=== PATIENT | female | born 1935 | race American Indian/Alaskan Native ===

== ENCOUNTER 2017-02-05 14:48 | Emergency (ER) | payer MEDICARE, MEDICAID ==
[2017-02-05 14:48] VITALS: BMI 30.2
[2017-02-05 15:14] VITALS: PULSE 78; RESP 18
[2017-02-05 18:10] LABS: ALB/GLOB RATIO 1.3 (1.0-2.1); BILIRUBIN,TOTAL 0.6 mg/dL (0.2-1.3); TOTAL PROTEIN 8.3 g/dL (6.3-8.3)
[2017-02-05 18:11] LABS: CALCIUM 10.1 mg/dl (8.6-10.4)
[2017-02-05 18:15] LABS: BASO # 0.1 K/uL (0.0-0.2); BASO % 0.7 % (0.0-2.0); EOS # 0.3 K/uL (0.0-0.7); EOS % 3.6 % (0.0-4.0); HEMATOCRIT 39.3 % (34.0-47.0); LYMPH # 3.8 K/uL (1.0-4.3); LYMPH % 41.8 % (20.0-40.0); MEAN CELL VOLUME 95.7 fL (81.0-99.0); MEAN CORPUSCULAR HEMOGLOBIN 31.5 pg (27.0-31.0); MEAN CORPUSCULAR HGB CONC 32.9 g/dL (33.0-37.0); MEAN PLATELET VOLUME 8.7 fL (7.2-11.7); MONO # 0.7 K/uL (0.0-0.8); MONO % 7.4 % (0.0-10.0); NRBC % 0.1 % (0.0-2.0); RED CELL DISTRIBUTION WIDTH 13.2 % (11.5-14.5)
--- NOTE | 2017-02-05 18:30 | C.PDOC ---
History Of Present Illness The patient, a 81 y/o female, presents the ED accompanied by family member for evaluation of inability to swallow since this morning. Patient states she has been taking Risperidone and has been experiencing difficulty swallowing secondary to use. Patient denies fever, chills and has no other complaints at this time. Time Seen by Provider: 02/05/17 17:05 Chief Complaint (Nursing): Medical Clearance History Per: Patient, Family History/Exam Limitations: no limitations Onset/Duration Of Symptoms: Hrs Current Symptoms Are (Timing): Still Present Additional History Per: Patient, Family Past Medical History Reviewed: Historical Data, Nursing Documentation, Vital Signs Vital Signs: Last Vital Signs Temp 99.7 F H 02/05/17 15:13 Pulse 78 02/05/17 15:13 Resp 18 02/05/17 15:13 BP 136/77 02/05/17 15:13 Pulse Ox 100 02/05/17 18:37 - Medical History PMH: Anemia, Anxiety, Arthritis, COPD, Depression, Fractures (TIBIA FIBULA IN 2007), HTN, Hypercholesterolemia, Hypothyroidism, Malignancy (breast CA), Parkinson's Disease, Chronic Kidney Disease, Schizophrenia Surgical History: Tonsillectomy - [facility] [employer] Procedures C.A.T. SCAN OF KIDNEY (08/05/14) LAPAROSCOPIC ROBOTIC ASSISTED PROCEDURE (12/28/14) LAPAROSCOPY (12/28/14) NEPHROURETERECTOMY (12/28/14) PERCUTAN NEEDLE BIOPSY OF BREAST (07/16/13) PERCUTAN NEEDLE BIOPSY OF KIDNEY (08/05/14) X-RAY NEC AND NOS (07/16/13) Family History: States: Unknown Family Hx - Social History Hx Alcohol Use: No Hx Substance Use: No - Immunization History Hx Tetanus Toxoid Vaccination: No Hx Influenza Vaccination: Yes Hx Pneumococcal Vaccination: Yes Review Of Systems Except As Marked, All Systems Reviewed And Found Negative. Constitutional: Negative for: Fever, Chills ENT: Positive for: Other (+difficulty with swallowing secondary to risperidone use ) Physical Exam - Physical Exam Appears: Non-toxic, No Acute Distress Skin: Normal Color, Warm, Dry Head: Atraumatic, Normacephalic Eye(s): bilateral: Normal Inspection Oral Mucosa: Moist Throat: Normal, No Erythema, No Exudate Neck: Normal ROM, Supple Chest: Symmetrical, No Deformity, No Tenderness Cardiovascular: Rhythm Regular, No Murmur Respiratory: Normal Breath Sounds, No Rales, No Rhonchi, No Wheezing Back: Normal Inspection, No Vertebral Tenderness, No Paraspinal Tenderness Extremity: Normal ROM, Capillary Refill (less than 2 seconds ) Neurological/Psych: Oriented x3, Normal Speech, Normal Cognition, Other (+ tardive dyskinesia) Gait: Steady ED Course And Treatment - Laboratory Results Result Diagrams: 02/05/17 17:54 02/05/17 17:54 O2 Sat by Pulse Oximetry: 100 (on RA) Pulse Ox Interpretation: Normal Progress Note: labs, EKG, and CXR ordered and reviewed. Patient is currently able to tolerating PO intake in the ED. - Scribe Statement The provider has reviewed the documentation as recorded by the Scribe (Fawn Weiss) All medical record entries made by the Scribe were at my direction and personally dictated by me. I have reviewed the chart and agree that the record accurately reflects my personal performance of the history, physical exam, medical decision making, and the department course for this patient. I have also personally directed, reviewed, and agree with the discharge instructions and disposition.
[2017-02-05 18:42] LABS: THYROID STIMULATING HORMONE 2.58 mIU/L (0.46-4.68)
--- NOTE | 2017-02-05 18:48 | C.PDOC ---
History Of Present Illness The patient, a 81 y/o female, presents the ED accompanied by family member for evaluation of inability to swallow since this morning. Patient states she has been taking Risperidone and has been experiencing difficulty swallowing secondary to use. Patient denies fever, chills and has no other complaints at this time. Time Seen by Provider: 02/05/17 17:05 Chief Complaint (Nursing): Medical Clearance History Per: Patient, Family History/Exam Limitations: no limitations Onset/Duration Of Symptoms: Hrs Current Symptoms Are (Timing): Still Present Additional History Per: Patient, Family Past Medical History Reviewed: Historical Data, Nursing Documentation, Vital Signs Vital Signs: Last Vital Signs Temp 99.7 F H 02/05/17 15:13 Pulse 78 02/05/17 15:13 Resp 18 02/05/17 15:13 BP 136/77 02/05/17 15:13 Pulse Ox 100 02/05/17 18:48 - Medical History PMH: Anemia, Anxiety, Arthritis, COPD, Depression, Fractures (TIBIA FIBULA IN 2007), HTN, Hypercholesterolemia, Hypothyroidism, Malignancy (breast CA), Parkinson's Disease, Chronic Kidney Disease, Schizophrenia Surgical History: Tonsillectomy - [facility] Procedures C.A.T. SCAN OF KIDNEY (08/05/14) LAPAROSCOPIC ROBOTIC ASSISTED PROCEDURE (12/28/14) LAPAROSCOPY (12/28/14) NEPHROURETERECTOMY (12/28/14) PERCUTAN NEEDLE BIOPSY OF BREAST (07/16/13) PERCUTAN NEEDLE BIOPSY OF KIDNEY (08/05/14) X-RAY NEC AND NOS (07/16/13) Family History: States: Unknown Family Hx - Social History Hx Alcohol Use: No Hx Substance Use: No - Immunization History Hx Tetanus Toxoid Vaccination: No Hx Influenza Vaccination: Yes Hx Pneumococcal Vaccination: Yes Review Of Systems Except As Marked, All Systems Reviewed And Found Negative. Constitutional: Negative for: Fever, Chills ENT: Positive for: Other (+difficulty swallowing ) Physical Exam - Physical Exam Appears: Non-toxic, No Acute Distress, Other (eating and drinking in ED, no difficulty swallowing) Skin: Normal Color, Warm, Dry Head: Atraumatic, Normacephalic Eye(s): bilateral: Normal Inspection Oral Mucosa: Moist Throat: Normal, No Erythema, No Exudate Neck: Supple Chest: Symmetrical, No Deformity, No Tenderness Cardiovascular: Rhythm Regular, No Murmur Respiratory: Normal Breath Sounds, No Rales, No Rhonchi, No Wheezing Extremity: Normal ROM, Capillary Refill (less than 2 seconds ) Neurological/Psych: Oriented x3, Normal Speech, Normal Cognition, Other (+ tardive dyskinesia) Gait: Steady ED Course And Treatment - Laboratory Results Result Diagrams: 02/05/17 17:54 02/05/17 17:54 O2 Sat by Pulse Oximetry: 100 (on RA) Pulse Ox Interpretation: Normal Progress Note: EKG, CXR, and labs ordered and reviewed. Case discussed with Dr. Cano who recommended to d/c patient home, with him f/u tomorrow. Disposition - Disposition Referrals: Joellen Cano MD [Staff Provider] - Disposition: HOME/ ROUTINE Disposition Time: 18:53 Condition: STABLE Additional Instructions: Follow up with tomorrow. Return to ED if feel worse. Instructions: Extrapyramidal Symptoms (ED), Chronic Dysphagia (GEN) - Clinical Impression Clinical Impression: Extrapyramidal movement disorder, Difficulty swallowing - PA / PERSONAL FITNESS TRAINER / Resident Statement MD/DO has reviewed & agrees with the documentation as recorded. - Scribe Statement The provider has reviewed the documentation as recorded by the Scribe (Fawn Weiss) All medical record entries made by the Scribe were at my direction and personally dictated by me. I have reviewed the chart and agree that the record accurately reflects my personal performance of the history, physical exam, medical decision making, and the department course for this patient. I have also personally directed, reviewed, and agree with the discharge instructions and disposition.
[2017-02-05 19:09] VITALS: BP 160/80; TEMP 98.4; O2SAT 98
--- NOTE | 2017-02-05 21:04 | RAD ---
PROCEDURE: CHEST RADIOGRAPH, 1 VIEW HISTORY: difficulty swallowing COMPARISON: None available. FINDINGS: LUNGS: Mild venous congestion. Upper lobe granulomatous changes. PLEURA: No pneumothorax or pleural fluid seen. CARDIOVASCULAR: Calcification at the aortic knob. Mild cardiomegaly. OSSEOUS STRUCTURES: Degenerative changes in the spine and shoulders. VISUALIZED UPPER ABDOMEN: Normal. OTHER FINDINGS: None. IMPRESSION: Mild venous congestion. Upper lobe granulomatous changes.
== END 2017-02-05 19:09 | disposition home or self-care (01) ==
LOC: C.ER 14:48
DX: G25.9 Extrapyramidal and movement disorder, unspecified (principal); R13.10 Dysphagia, unspecified

== ENCOUNTER 2017-11-27 14:37 | Inpatient (IN) | payer MEDICARE, MEDICAID ==
[2017-11-27 14:38] VITALS: BMI 30.2
[2017-11-27 16:02] VITALS: RESP 20
--- NOTE | 2017-11-27 16:06 | RAD ---
PROCEDURE: CHEST RADIOGRAPH, 1 VIEW HISTORY: Weakness COMPARISON: 02/05/2017. FINDINGS: LUNGS: The lungs are clear. PLEURA: No pneumothorax or pleural fluid seen. CARDIOVASCULAR: The heart is normal in size. Atherosclerotic aortic arch calcifications are present. OSSEOUS STRUCTURES: No significant abnormalities. VISUALIZED UPPER ABDOMEN: Normal. OTHER FINDINGS: None. IMPRESSION: No active pulmonary disease.
--- NOTE | 2017-11-27 16:53 | C.PDOC ---
History Of Present Illness 82 y/o female with history of Parkinson's, DM and HTN presents to ED for evaluation of weakness, decreased appetite and decrease in activity for over 1 week. As per sister who is at bedside, she states she thinks patient developing dementia, and was sent by Dr. Cano for admission as patient needs rehab. Sister states patient just stirs her food with little intake. She has been having more trouble with daily activities such as dressing herself and feeding herself. She has noticed weight loss and patient complains of feeling weak. Time Seen by Provider: 11/27/17 15:36 Chief Complaint (Nursing): Weakness/Neurological Deficit History Per: Patient History/Exam Limitations: no limitations Onset/Duration Of Symptoms: Days Current Symptoms Are (Timing): Still Present Past Medical History Reviewed: Historical Data, Nursing Documentation, Vital Signs Vital Signs: Last Vital Signs Temp 98.4 F 11/27/17 14:42 Pulse 69 11/27/17 16:02 Resp 20 11/27/17 16:02 BP 137/62 11/27/17 16:02 Pulse Ox 99 11/27/17 17:50 - Medical History PMH: Anemia, Anxiety, Arthritis, COPD, Depression, Fractures (TIBIA FIBULA IN 2007), HTN, Hypercholesterolemia, Hypothyroidism, Malignancy (breast CA), Parkinson's Disease, Chronic Kidney Disease, Schizophrenia Surgical History: Tonsillectomy - [facility] Procedures C.A.T. SCAN OF KIDNEY (08/05/14) LAPAROSCOPIC ROBOTIC ASSISTED PROCEDURE (12/28/14) LAPAROSCOPY (12/28/14) NEPHROURETERECTOMY (12/28/14) PERCUTAN NEEDLE BIOPSY OF BREAST (07/16/13) PERCUTAN NEEDLE BIOPSY OF KIDNEY (08/05/14) X-RAY NEC AND NOS (07/16/13) Family History: States: No Known Family Hx - Social History Hx Alcohol Use: No Hx Substance Use: No - Immunization History Hx Tetanus Toxoid Vaccination: No Hx Influenza Vaccination: Yes Hx Pneumococcal Vaccination: Yes Review Of Systems Review Of Systems: ROS cannot be obtained secondary to pt's inabilty to answer questions. (secondary to patient's clinical condition) Physical Exam - Physical Exam Appears: Non-toxic, No Acute Distress Skin: Warm, Dry, No Diaphoretic, No Pale, No Rash Head: Atraumatic, Normacephalic Eye(s): bilateral: Normal Inspection, EOMI Oral Mucosa: Dry Lips: Other (dry) Neck: Normal ROM, Supple Chest: Other (Masectomy bilaterally) Cardiovascular: Rhythm Regular Respiratory: No Rales, No Rhonchi, No Wheezing Gastrointestinal/Abdominal: Soft, No Tenderness, No Guarding, No Rebound Extremity: Bilateral: Atraumatic, Normal ROM Neurological/Psych: Oriented x3, Normal Speech Gait: Unable To Assess ED Course And Treatment - Laboratory Results Result Diagrams: 11/27/17 17:07 11/27/17 17:07 Lab Interpretation: No Acute Changes O2 Sat by Pulse Oximetry: 99 (RA) Pulse Ox Interpretation: Normal - CT Scan/US Head Other Rad Studies (CT/US): Read By Radiologist, Radiology Report Reviewed CT/US Interpretation: Accession No. : [id number]. Patient Name / ID : KEITH HIGH / [id number]. Exam Date : 11/27/2017 17:14:50 ( Approved ). Study Comment : Sex / Age : F / 82Y. Creator : Soco Cruz. Dictator : Devorah Zuniga MD. Dive Master : Route Supervisor : Devorah Zuniga MD. Approver2 : Report Date : 11/27/2017 17:26:41. My Comment : . PROCEDURE: CT HEAD WITHOUT CONTRAST. HISTORY: AMS x 1 week, weakness. COMPARISON: Noncontrast head CT performed 09/13/15. TECHNIQUE: Axial computed tomography images were obtained through the head/brain without intravenous contrast. Radiation dose: Total exam DLP = 867.87 mGy-cm. This CT exam was performed using one or more of the following dose reduction techniques: Automated exposure control, adjustment of the mA and/or kV according to patient size, and/ or use of iterative reconstruction technique. FINDINGS: HEMORRHAGE: No intracranial hemorrhage. BRAIN: Diffuse atrophy with prominence of the ventricles and sulci noted. No mass effect or edema. Scattered periventricular and subcortical white matter hypodensities, which are nonspecific, but often seen with chronic microvascular ischemic disease. Please note that MRI with diffusion imaging is more sensitive in the detection of acute ischemic event. VENTRICLES: No hydrocephalus. CALVARIUM: Unremarkable. PARANASAL SINUSES: Unremarkable as visualized. No significant inflammatory changes. MASTOID AIR CELLS: Unremarkable as visualized. No inflammatory changes. OTHER FINDINGS: Partial opacification of the bilateral external auditory canals, likely cerumen. IMPRESSION: No acute intracranial pathology identified. Findings as above. Chest Xray Other Rad Studies (CT/US): Read By Radiologist, Radiology Report Reviewed CT/US Interpretation: Accession No. : [id number]. Patient Name / ID : KEITH HIGH / [id number]. Exam Date : 11/27/2017 15:57:36 ( Approved ). Study Comment : Sex / Age : F / 82Y. Creator : Yany Lawrence MD. Dictator : Yany Lawrence MD. Dive Master : Route Supervisor : Yany Lawrence MD. Approver2 : Report Date : 11/27/2017 16:05:06. My Comment : . PROCEDURE: CHEST RADIOGRAPH, 1 VIEW. HISTORY: Weakness. COMPARISON: 2016. FINDINGS: LUNGS: The lungs are clear. PLEURA: No pneumothorax or pleural fluid seen. CARDIOVASCULAR: The heart is normal in size. Atherosclerotic aortic arch calcifications are present. OSSEOUS STRUCTURES: No significant abnormalities. VISUALIZED UPPER ABDOMEN: Normal. OTHER FINDINGS: None. IMPRESSION: No active pulmonary disease. Medical Decision Making Medical Decision Making: Impression: Weakness Plan: Blood work, CT scan Progress: diagnostics reviewed CT shows no intracranial pathology Patient appears dry, despite labwork. She has been having more difficulty with ADL. Patient will need PT, OT and inpatient perinatal social worker [id number]: Spoke to Dr. Cano requested patient to be admitted under his service Disposition - Disposition Disposition: HOSPITALIZED Disposition Time: 17:57 Condition: STABLE - POA Present On Arrival: None - Clinical Impression Clinical Impression: Failure to thrive in adult, Impaired mobility and ADLs - PA / CIVIL MANAGER / Resident Statement MD/DO has reviewed & agrees with the documentation as recorded. - Scribe Statement The provider has reviewed the documentation as recorded by the Tip Benoit All medical record entries made by the Steffanieibgonzales were at my direction and personally dictated by me. I have reviewed the chart and agree that the record accurately reflects my personal performance of the history, physical exam, medical decision making, and the department course for this patient. I have also personally directed, reviewed, and agree with the discharge instructions and disposition. Decision To Admit - Pt Status Changed To: Hospital Disposition Of: Inpatient - Admit Certification Admit to Inpatient:: After my assessment, the patient will require hospitalization for at least two midnights. This is because of the severity of symptoms shown, intensity of services needed, and/or the medical risk in this patient being treated as an outpatient. - InPatient: Physician Admission Certification: I certify that this patient requires 2 or more midnights of care for the following reason:: Patient appears dry. She has been having more difficulty with ADL. Patient will need PT, OT and inpatient perinatal social worker - . Bed Request Type: Regular Admitting Physician: Joellen Cano Patient Diagnosis: Failure to thrive in adult, Impaired mobility and ADLs
[2017-11-27 17:16] LABS: BASO # 0.1 K/uL (0.0-0.2); BASO % 0.9 % (0.0-2.0); EOS # 0.2 K/uL (0.0-0.7); EOS % 2.1 % (0.0-4.0); HEMOGLOBIN 11.7 g/dL (11.0-16.0); LYMPH # 2.9 K/uL (1.0-4.3); LYMPH % 38.9 % (20.0-40.0); MEAN CORPUSCULAR HEMOGLOBIN 32.2 pg (27.0-31.0); MEAN CORPUSCULAR HGB CONC 33.2 g/dL (33.0-37.0); MEAN PLATELET VOLUME 8.4 fL (7.2-11.7); MONO # 0.6 K/uL (0.0-0.8); NEUT # 3.7 K/uL (1.8-7.0); NEUT % 50.1 % (50.0-75.0); NRBC % 0.1 % (0.0-2.0); RBC 3.63 Mil/uL (3.80-5.20); RED CELL DISTRIBUTION WIDTH 12.8 % (11.5-14.5); WHITE BLOOD COUNT 7.4 K/uL (4.8-10.8)
[2017-11-27 17:39] LABS: ALBUMIN 3.9 g/dL (3.5-5.0); ALT/SGPT 21 U/L (9-52); AST/SGOT 34 U/L (14-36); BLOOD UREA NITROGEN 16 mg/dL (7-17); CALCIUM 9.4 mg/dl (8.6-10.4); GFR AFRICAN-AMERICAN > 60; GFR NON-AFRICAN AMERICAN > 60
--- NOTE | 2017-11-27 17:40 | CT ---
PROCEDURE: CT HEAD WITHOUT CONTRAST. HISTORY: AMS x 1 week, weakness COMPARISON: Noncontrast head CT performed 09/13/15 TECHNIQUE: Axial computed tomography images were obtained through the head/brain without intravenous contrast. Radiation dose: Total exam DLP = 867.87 mGy-cm. This CT exam was performed using one or more of the following dose reduction techniques: Automated exposure control, adjustment of the mA and/or kV according to patient size, and/or use of iterative reconstruction technique. FINDINGS: HEMORRHAGE: No intracranial hemorrhage. BRAIN: Diffuse atrophy with prominence of the ventricles and sulci noted. No mass effect or edema. Scattered periventricular and subcortical white matter hypodensities, which are nonspecific, but often seen with chronic microvascular ischemic disease. Please note that MRI with diffusion imaging is more sensitive in the detection of acute ischemic event. VENTRICLES: No hydrocephalus. CALVARIUM: Unremarkable. PARANASAL SINUSES: Unremarkable as visualized. No significant inflammatory changes. MASTOID AIR CELLS: Unremarkable as visualized. No inflammatory changes. OTHER FINDINGS: Partial opacification of the bilateral external auditory canals, likely cerumen. IMPRESSION: No acute intracranial pathology identified. Findings as above.
[2017-11-27 17:45] LABS: B-TYPE NATRIURETIC PEPTIDE 77.9 pg/mL (0-900); CK-MB 2.33 ng/mL (0.0-3.38)
[2017-11-27 19:34] LABS: SQUAMOUS EPITHIAL 1 /hpf (0-5); URINE AMORPHOUS SEDIMENT RARE /ul (<OCC); URINE BACTERIA OCC (<OCC); URINE BILIRUBIN NEGATIVE (NEGATIVE); URINE BLOOD NEGATIVE (NEGATIVE); URINE CLARITY Hazy (Clear); URINE COLOR Yellow (YELLOW); URINE GLUCOSE (UA) NORMAL (Normal); URINE LEUKOCYTE ESTERASE TRACE Leu/uL (Negative); URINE NITRATE NEGATIVE (NEGATIVE); URINE PROTEIN NEGATIVE (NEGATIVE); URINE UROBILINOGEN NORMAL mg/dL (0.2-1.0)
[2017-11-27] MEDS: Sodium Chloride 0.45% 1,000 ML IV SCH (21:35)
[2017-11-28] MEDS: Levothyroxine 75 MCG TAB PO SCH (05:46)
--- NOTE | 2017-11-28 06:51 | CP.PCM.CON ---
History of Present Illness - History of Present Illness History of Present Illness: consult dictated MID AND APPENDICULAR DYSFUNCTION TARDY DYSKINESIA NO PARKINSONS DISEASE ??PARANEOPLASTIC / HEREDITARY DEGEN DISEASE MRI/BLOOD DEMENTIAS WORK UP PT Past Patient History - Infectious Disease Hx of Infectious Diseases: None - Past Medical History & Family History Past Medical History?: Yes - Past Social History Smoking Status: Never Smoked - CARDIAC Hx Hypercholesterolemia: Yes Hx Hypertension: Yes - PULMONARY Hx Chronic Obstructive Pulmonary Disease (COPD): Yes - NEUROLOGICAL Hx Parkinson's Disease: Yes - HEENT Hx HEENT Problems: No Other/Comment: blurry vision - side effect of medication as per family - RENAL Hx Chronic Kidney Disease: Yes - ENDOCRINE/METABOLIC Hx Hypothyroidism: Yes - HEMATOLOGICAL/ONCOLOGICAL Hx Anemia: Yes - INTEGUMENTARY Hx Dermatological Problems: Yes (rash left breast) - MUSCULOSKELETAL/RHEUMATOLOGICAL Hx Falls: Yes - GASTROINTESTINAL Hx Gastrointestinal Disorders: Yes (constipation) Hx Constipation: Yes - GENITOURINARY/GYNECOLOGICAL Hx Genitourinary Disorders: Yes Other/Comment: UTERINE FIBROID - PSYCHIATRIC Hx Anxiety: Yes Hx Depression: Yes Hx Substance Use: No - SURGICAL HISTORY Hx Surgeries: Yes Hx Hysterectomy: Yes Hx Mastectomy: Yes (left mastectomy) Hx Tonsillectomy: Yes Other/Comment: right nephrectomy - ANESTHESIA Hx Anesthesia: Yes Hx Anesthesia Reactions: No Hx Malignant Hyperthermia: No Has any member of the family had a problem w/ anesthesia?: No Meds Allergies/Adverse Reactions: Allergies Allergy/AdvReac Type Severity Reaction Status Date / Time Latex, Natural Rubber Allergy Intermediate RASH Verified 11/27/17 14:42 bacitracin Allergy Mild RASH Verified 11/27/17 14:42 [From Neosporin ([id number])] bacitracin zinc Allergy Mild RASH Verified 11/27/17 14:42 [From Neosporin ([id number])] ibuprofen [From Motrin] Allergy Mild RASH Verified 11/27/17 14:42 neomycin sulfate Allergy Mild RASH Verified 11/27/17 14:42 [From Neosporin ([id number])] polymyxin B Allergy Mild RASH Verified 11/27/17 14:42 [From Neosporin ([id number])] - Medications Medications: Current Medications Amlodipine Besylate (Norvasc) 5 mg PO DAILY [facility] Benztropine Mesylate (Cogentin) 2 mg PO HS [facility]BI Last Admin: 11/27/17 22:34 Dose: 2 mg Sodium Chloride (Sodium Chloride 0.45%) 1,000 mls @ 80 mls/hr IV .[id number] [facility] Last Admin: 11/27/17 21:35 Dose: 80 mls/hr Insulin Aspart (Novolog) 0 unit SC ACBD [facility] PRN Reason: Protocol Levothyroxine Sodium (Synthroid) 75 mcg PO DAILY@0630 [facility] Last Admin: 11/28/17 05:46 Dose: 75 mcg Lorazepam (Ativan) 0.5 mg PO HS [facility] Last Admin: 11/27/17 22:06 Dose: 0.5 mg Lorazepam (Ativan) 0.5 mg PO DAILY PRN PRN Reason: Anxiety Multivitamins/Minerals (Therapeutic-M Tab) 1 tab PO 0800 [facility] Pneumococcal Polyvalent Vaccine (Pneumovax 23 Vaccine) 0.5 ml IM .ONCE ONE Stop: 11/29/17 10:01 Rosuvastatin Calcium (Crestor) 10 mg PO [facility] Last Admin: 11/27/17 22:05 Dose: 10 mg Results - Vital Signs Recent Vital Signs: Last Vital Signs Temp 98.2 F 11/28/17 01:00 Pulse 99 H 11/28/17 01:00 Resp 20 11/28/17 01:00 BP 159/72 H 11/28/17 01:00 Pulse Ox 97 11/28/17 01:00 - Labs Result Diagrams: 11/27/17 17:07 11/27/17 17:07 Labs: Laboratory Results - last 24 hr 11/27/17 11/27/17 11/27/17 17:04 17:07 17:07 WBC 7.4 RBC 3.63 L Hgb 11.7 Hct 35.2 MCV 97.0 MCH 32.2 H MCHC 33.2 RDW 12.8 Plt Count 243 MPV 8.4 Neut % (Auto) 50.1 Lymph % (Auto) 38.9 [place] % (Auto) 8.0 Eos % (Auto) 2.1 Baso % (Auto) 0.9 Neut # (Auto) 3.7 Lymph # (Auto) 2.9 [place] # (Auto) 0.6 Eos # (Auto) 0.2 Baso # (Auto) 0.1 Sodium 139 Potassium 3.9 Chloride 101 Carbon Dioxide 29 Anion Gap 14 BUN 16 Creatinine 0.9 Est GFR ( Amer) > 60 Est GFR (Non-Af Amer) > 60 POC Glucose (mg/dL) Random Glucose 92 Calcium 9.4 Total Bilirubin 0.7 AST 34 ALT 21 Alkaline Phosphatase 68 CK-MB (Mass) 2.33 NT-Pro-B Natriuret Pep 77.9 Total Protein 7.6 Albumin 3.9 Globulin 3.7 Albumin/Globulin Ratio 1.0 Free T4 1.26 TSH 3rd Generation 1.22 Urine Color Urine Clarity Urine pH Ur Specific [place] Urine Protein Urine Glucose (UA) Urine Ketones Urine Blood Urine Nitrate Urine Bilirubin Urine Urobilinogen Ur Leukocyte Esterase Urine WBC (Auto) Urine RBC (Auto) Ur Squamous Epith Cells Amorphous Sediment Urine Bacteria 11/27/17 11/27/17 11/28/17 19:20 21:08 02:38 WBC RBC Hgb Hct MCV MCH MCHC RDW Plt Count MPV Neut % (Auto) Lymph % (Auto) [place] % (Auto) Eos % (Auto) Baso % (Auto) Neut # (Auto) Lymph # (Auto) [place] # (Auto) Eos # (Auto) Baso # (Auto) Sodium Potassium Chloride Carbon Dioxide Anion Gap BUN Creatinine Est GFR ( Amer) Est GFR (Non-Af Amer) POC Glucose (mg/dL) 99 86 Random Glucose Calcium Total Bilirubin AST ALT Alkaline Phosphatase CK-MB (Mass) NT-Pro-B Natriuret Pep Total Protein Albumin Globulin Albumin/Globulin Ratio Free T4 TSH 3rd Generation Urine Color Yellow Urine Clarity Hazy Urine pH 6.0 Ur Specific [place] 1.020 Urine Protein Negative Urine Glucose (UA) Normal Urine Ketones 1+ H Urine Blood Negative Urine Nitrate Negative Urine Bilirubin Negative Urine Urobilinogen Normal Ur Leukocyte Esterase Trace Urine WBC (Auto) 3 Urine RBC (Auto) 2 Ur Squamous Epith Cells 1 Amorphous Sediment Rare H Urine Bacteria Occ H
[2017-11-28 09:12] LABS: FOLATE > 20.0 ng/mL
[2017-11-28] MEDS: (Novolog) Insulin Aspart, Recombinant 100 u/ml 10 ml vial SC SCH ×2 (10:11→16:55)
[2017-11-28] MEDS: Sodium Chloride 0.45% 1,000 ML IV SCH ×2 (10:12→22:15)
[2017-11-28] MEDS: Multivitamin With Minerals Tab PO SCH (10:24)
[2017-11-28] MEDS: Enoxaparin 30 mg Syringe SC SCH (10:25)
--- NOTE | 2017-11-28 11:41 | CARD ---
APPROVED REPORT EKG Measurement Heart [id number] W[place] [id number] <Conclusion> Sinus rhythm with premature supraventricular complexes Nonspecific ST and T wave abnormality Abnormal ECG
--- NOTE | 2017-11-28 12:16 | CON ---
DATE: ATTENDING PHYSICIAN: Joellen Cano MD. LOCATION: Room# 365, [facility]. REASON FOR CONSULTATION: Poor intake, generalized weakness and history of Parkinson disease. HISTORY OF PRESENTING ILLNESS: Mrs. Willa Sandoval is an 82-year-old right-handed female who is known to me from her previous hospitalization, brought to the [facility] by her family members with the advice of the primary care physician due to her inability to eat too well and generalized weakness. From neurologic point of view I was called in to evaluate her for abnormal movement, possible Parkinson's disease. She was admitted in the past for the similar complaints. 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 PAST MEDICAL HISTORY: Anemia, anxiety, arthritis, COPD, depression, hypertension, dyslipidemia, hypothyroidism, breast cancer, Parkinson disease, chronic renal disease and schizophrenia. PERSONAL HISTORY: Denies smoking or alcohol use. ALLERGIES: RUBBER MATERIALS, BACITRACIN AND IBUPROFEN. REVIEW OF SYSTEMS: A 12-point system being reviewed from neuro, the patient has movement disorder. MEDICATIONS: Lorazepam, Ativan, Cogentin, Crestor, Norvasc, NovoLog, Synthroid. PHYSICAL EXAMINATION: VITAL SIGNS: Blood pressure 159/72, mean artery pressure of 101, respiratory rate 16, temperature afebrile. NECK: Supple. No carotid bruits. HEART: Sounds regular. CHEST: Fair air entry. EXTREMITIES: Distal muscle groups atrophy noted. NEUROLOGIC: The patient giving social smile. She seems to remember my name. Communicable, follows one-step command. No right and left confusion. Cranial nerve examination, respond to visual threat. Pupils reactive to light. Extraocular movement, rolling conjugate gaze noted. No vision or sensory deficit. No facial asymmetry. Hearing is normal. Tongue is midline. Good gag. Motor examination, outstretched hand with eyes closed, sensory tremor noted. Mild dysmetria on finger-nose testing also noted. No cogwheel rigidity. No resting tremor. Deep tendon reflexes are absent. Plantars are equivocal response on both sides. Sensory examination respond to pain symmetrically on both sides. Gait is deferred at this time. WORKUP: CT of the head does not show any acute pathology, generalized atrophy with periventricular ischemic changes noted. EKG normal sinus rhythm. Blood workup, WBC 7.4, hemoglobin 11.7, hematocrit 35.2, platelet 243. Sodium 139, potassium 3.9, chloride 101, bicarbonate 29, BUN 16, creatinine 0.9, GFR more than 60, glucose 86, calcium 9.4. Liver functions are normal. Urinalysis is 1+ketones and rare amorphous sediments. CONCLUSION: Mrs. Willa Sandoval been presenting with; 1. 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 Considering her age and history of breast cancer, paraneoplastic syndrome should be ruled out. 2. The patient also suffering from bilateral distal symmetric sensorimotor neuropathy. 3. 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 RECOMMENDATIONS: 1. MRI of the brain to rule out any structural cause for her mid and appendicular cerebellar dysfunction. 2. Blood workup to rule out paraneoplastic syndrome and hepatolenticular degeneration. 3. The patient should be out of the bed, DVT prophylaxis and physical therapy should be instituted with fall precaution. 4. The patient does not show any evidence of Parkinson disease. The patient will be followed closely with you. Richard Duckworth MD
--- NOTE | 2017-11-28 22:51 | PN ---
DATE: 11/28/2017. SUBJECTIVE: The patient is seen today, 11/28/2017 and son is at bedside. PHYSICAL EXAMINATION: VITAL SIGNS: Blood pressure is 163/69, temperature 98.3, respiratory rate 20 and pulse 62. HEENT: Pupils equal, reactive to light. Normal-appearing mucosa of the conjunctivae, oropharynx and nasal membrane mucosa. NECK: Supple. No JVD. No carotid bruit. No lymph node. No thyromegaly. CHEST AND LUNGS: Bilateral symmetrical expansion. Good air exchange. No rales, no rhonchi. CARDIOVASCULAR SYSTEM: PMI not localized. S1, S2. No additional sounds. ABDOMEN: Normoactive bowel sounds. No tenderness. No organomegaly. No masses. EXTREMITIES: No cyanosis, no clubbing, no edema. MEAT HANGER: Alert, awake, oriented x1 and moves all extremities equally. ASSESSMENT: Parkinson's syndrome, dysfunctional gait and tendency to fall, hypertension, hypothyroidism. PLAN: Continue current medications and followup with Pulmonary, followup with Neurology as well as with Psychiatry recommendations. Continue IV fluid for hydration. Joellen Cano MD
--- NOTE | 2017-11-29 00:45 | CON ---
DATE: CHIEF COMPLAINT AND REASON FOR CONSULTATION: The patient is referred by Dr. Cano for evaluation, comanagement. The patient has history of schizophrenia, also history of dementia. The patient is well known to me, had been treated during the past at the office as well as in hospital and [facility]. HISTORY OF PRESENT ILLNESS: This is a case of 82-year-old female with history of schizophrenia for many many years as well as history of diabetes, hypertension, history of secondary Parkinsonism, patient developed Parkinson from chronic use of neuroleptic in the past, but has been off neuroleptic. The patient was brought in by the sister for increasing weakness, poor appetite, and debility for one week. The patient has history of Parkinson. Her sister, Daisy, is the one who is taking care of her, and the patient was advised by her doctor that the patient need rehab. The patient has a history of dementia. She has tried medication for dementia in the past but unable to tolerate due to side effects. She also has been taking off psych medications because of her Parkinson. The patient attends day program with [facility] 5 days a week and has been for a while manageable, but later has been declining medically, and the sister reports that the patient has not been eating well and also has been feeling weak. Review of her labs showed the patient's B12 was low, was only 233 which contributed to her weakness. The patient when seen today, was noted be drowsy, and she was given Ativan p.r.n. The patient is only taking Ativan at home 0.5 mg at bedtime and also p.r.n. as well as Cogentin 2 mg at bedtime for her Parkinson disease, however, Cogentin can worsen her dementia. The patient has been referred to be seen for Parkinson by Dr. Duckworth. PAST PSYCHIATRIC HISTORY: As stated, long history of schizophrenia as well as history of secondary Parkinsonism and has been off neuroleptic, history of psych admission in the past. No suicidal history. MEDICAL HISTORY: As stated, history of hypertension, history of anemia, history of schizophrenia, Parkinson disease, skin problems, history of hypothyroidism, history of hyperglyceridemia, history of arthritis, and history of breast CA. DRUG AND ALCOHOL HISTORY: Denies any. ALLERGIES: THE PATIENT HAS MULTIPLE ALLERGIES. ALLERGIC TO LATEX, BACITRACIN, BUSPIRONE. PSYCHOSOCIAL HISTORY: The patient is disabled. She lives with her sister, Daisy, who is her primary caregiver. MEDICATIONS: Include Ativan 0.5 mg at bedtime and 0.5 mg daily p.r.n.; Cogentin 2 mg at bedtime; Crestor; Norvasc; NovoLog; Synthroid. The patient is on multivitamins. The patient used to take Aricept in the past and history of drooling from it, so it was stopped. REVIEW OF LABS: WBC is 7.4, H and H 11.7 and 35.2. Folate is greater than 20 but her B12 level is low at 233. Free T4 is 1.26. UA is +1 for ketones and some occasional bacteria. REVIEW OF SYSTEMS: GENERAL: The patient is drowsy in her room, could hardly converse but nods when asked. SKIN: No diaphoresis. HEENT: No headache or dizziness. NECK: Supple. RESPIRATORY: No dyspnea. CARDIOVASCULAR: No chest pain. GASTROINTESTINAL: The patient is refusing to eat. As noted, the patient has poor appetite. EXTREMITIES: The patient is moving extremities with no step off but the patient has not been walking well. NEUROLOGIC: Alert with periods of confusion. GENITOURINARY: No complaints of dysuria. PHYSICAL EXAMINATION: VITAL SIGNS: Temperature 98, pulse 62, blood pressure 163/69, respirations 20, oxygen sat is 96%. The patient had a CAT scan of the head done that showed no acute intracranial abnormality. However, the CAT scan did show that the patient has diffuse atrophy with prominence of the ventricle and sulci noted. MENTAL STATUS EXAMINATION: Elderly female who looks stated age, wearing a turban, in her room, oriented to place and person. Speech is low in tone. Affect is restricted. Mood is dysphoric. Thought process is confused at times. Thought content, no overt hallucinations. No suicidal ideation. Attention and memory seems to be limited. Insight and judgement limited. Impulse control is fair at this time. IMPRESSION: History of chronic schizophrenia, with secondary Parkinsonism as well as history of dementia with mood changes as well as debility, failure to thrive, and B12 deficiency. The patient also has UTI. PLAN AND RECOMMENDATIONS: The patient seen, meds reviewed. The patient referred and had been evaluated by Dr. Duckworth. Psychwise, we will keep in minimum psych medication. She continued the Ativan 0.5 mg at bedtime and Ativan 0.5 daily. The patient's Parkinson has been evaluated by Dr. Duckworth. She is not exhibiting any psychotic symptoms, however, she will be given meds, dopamine agonists for her Parkinson. We will monitor if patient given Sinemet or any kind of medication for Parkinson that would raise the dopamine might exacerbate her primary psych problems and may cause hallucinations, paranoia, or anxiety. I did suggest not to put patient on medicines for dementia as we tried it in the past and the patient cannot tolerate it. When she was on Aricept, the patient was drooling and spitting a lot and it did not work, so the patient may benefit just with a low dose Ativan and also she might need to go for subacute rehab for reconditioning. The patient's caregiver, Daisy, has been taking care for her for years, but patient seems to decline medically and may need to go for subacute rehab. She was in the rehab in the past for reconditioning and did well. Eleuterio Corral MD DANO
[2017-11-29] MEDS: Levothyroxine 75 MCG TAB PO SCH (06:00)
[2017-11-29] MEDS: Multivitamin With Minerals Tab PO SCH (07:48)
[2017-11-29] MEDS: (Novolog) Insulin Aspart, Recombinant 100 u/ml 10 ml vial SC SCH ×2 (07:54→18:05)
[2017-11-29 08:23] LABS: CERULOPLASMIN 25 mg/dL (18-53)
--- NOTE | 2017-11-29 09:38 | PN ---
DATE: 11/29/2017. TIME OF EVALUATION: 06:15 a.m. NEUROLOGICAL PROBLEM: Parkinson syndrome. PHYSICAL EXAMINATION: VITAL SIGNS: Blood pressure 157/73, mean artery pressure of 101, respiratory rate 18, temperature 97.4. NEUROLOGICAL: The patient is more awake, alert, communicable, moves all 4 extremities as per the command. Mild right and left confusion. Some orolingual dyskinesia noted. Her examination unchanged to compare with my previous examination. RECOMMENDATIONS: 1. The patient does not have Parkinson disease. 2. The patient had workup showed significant low level of vitamin B12, which has been supplemented IM since yesterday. The patient's scheduled MRI of the brain is pending including blood workup is also pending. The patient will be followed closely with you. Richard Duckowrth MD
--- NOTE | 2017-11-29 09:45 | HP ---
The patient was seen on 11/27/2017 in emergency room. HISTORY OF PRESENT ILLNESS: She is an 82 years old female with history of multiple medical problems who was brought by family to emergency room for inability to eat, generalized weakness, and unsteadiness. The patient also was noticed to have abnormal movement of mouth smacking and possible tremors. The patient denied to have any symptoms and history taken mostly from the sister who was at the bedside. Other review of system is negative. ALLERGIES: NO KNOWN ALLERGIES. PAST MEDICAL HISTORY: Cancer of breast, status post right mastectomy, hypertension, type 2 diabetes mellitus, hypothyroidism. MEDICATIONS: As per MAR. SOCIAL HISTORY: No history of smoking, EtOH, or substance abuse. FAMILY HISTORY: Not contributory. PHYSICAL EXAMINATION: GENERAL: The patient was in bed, comfortable, not in any cardiopulmonary distress. VITAL SIGNS: Blood pressure 140/78, temperature 98.2, respiratory rate 18, pulse of 72. HEENT: Pupils equal and reactive to light. Normal-appearing mucosa of the conjunctivae, oropharynx, and nasal membrane mucosa. NECK: Supple. No JVD. No carotid bruit. No lymph node. No thyromegaly. CHEST/LUNGS: Bilateral symmetrical expansion. Good air exchange. No rales, no rhonchi. CARDIOVASCULAR SYSTEM: PMI not localized. S1, S2. No additional sounds. ABDOMEN: Normoactive bowel sounds. No tenderness. No organomegaly. No masses. EXTREMITIES: No cyanosis, no clubbing, no edema. CLINICAL RESEARCH PHYSICIAN: Alert, awake, oriented x1; moves all extremities equally. ASSESSMENT: Type 2 diabetes mellitus, hypertension, possible Parkinson's syndrome, hypothyroidism. PLAN: Physical therapy, and follow Neurology and Psychiatry consults and recommendations. Joellen Cano MD
[2017-11-29] MEDS ORDERED: Pneumococcal 23-Valent Vaccine IM ONE (10:00)
[2017-11-29] MEDS: Enoxaparin 30 mg Syringe SC SCH (10:13)
[2017-11-29] MEDS: Sodium Chloride 0.45% 1,000 ML IV SCH ×2 (11:33→23:15)
--- NOTE | 2017-11-29 12:31 | MRI ---
PROCEDURE: MRI BRAIN WITHOUT CONTRAST HISTORY: Dementia and failure to thrive, spinous cerebellar degeneration COMPARISON: Noncontrast head CT from 11/27/2017 there is. TECHNIQUE: Multiplanar, multisequence MR images of the brain were obtained without intravenous contrast enhancement. FINDINGS: HEMORRHAGE: None DWI: No evidence of an acute or early subacute infarction. BRAIN PARENCHYMA: There are moderate chronic microangiopathic changes. There is no mass, mass effect or abnormal extra-axial fluid collection. The midline sagittal structures are normal. VENTRICLES: There is moderate age-related global parenchymal volume loss and proportionate enlargement of the ventricles and cortical sulci. There is a cavum septum pellucidum. CRANIUM: There is normal bone marrow signal pattern. ORBITS: Grossly unremarkable. PARANASAL SINUSES/MASTOIDS: There is a retention cyst/ polyp in the right maxillary sinus, the remaining included paranasal sinuses and mastoid air cells are predominantly clear. VASCULAR SYSTEM: There are normal signal voids in the larger intracranial arteries. OTHER FINDINGS: None. IMPRESSION: 1. No acute intracranial abnormality. 2. Moderate chronic microangiopathic changes and moderate age-related global parenchymal volume loss.
[2017-11-29] MEDS: Piperacill/Tazo 2.25gm in Dex 2.25 GM/50 ML BAG IVPB SCH ×2 (12:51→18:05)
[2017-11-29] MEDS ORDERED: Piperacill/Tazo 2.25gm in Dex 2.25 GM/50 ML BAG IVPB SCH (14:00)
--- NOTE | 2017-11-29 23:41 | PN ---
DATE: 11/29/2017 SUBJECTIVE: The patient is seen today, 11/29/2017. She is not in any cardiopulmonary distress. PHYSICAL EXAMINATION: VITAL SIGNS: Blood pressure is 160/76, temperature 98.1, respiratory rate 20, and pulse 104. HEENT: Pupils are equal and reactive to light. Normal appearing mucosa of the conjunctivae, oropharynx, and nasal membrane mucosa. NECK: Supple. No JVD. No carotid bruit. No lymph node. No thyromegaly. CHEST/LUNGS: Bilateral symmetrical expansion. Good air exchange. No rales, no rhonchi. CARDIOVASCULAR SYSTEM: PMI not localized. S1, S2. No additional sounds. ABDOMEN: Normoactive bowel sounds. No tenderness. No organomegaly. No masses. EXTREMITIES: No cyanosis, no clubbing, no edema. WHEEL INSPECTOR: Alert, awake, oriented x1 and moves all extremities equally. ASSESSMENT: 1. Failure to thrive. 2. Dehydration. 3. Parkinson's disease with unsteadiness and tendency to fall. 4. Hypertension. 5. Type 2 diabetes mellitus. PLAN: Continue current IV fluids, medications, and physical therapy. Plan to discharge to subacute rehabilitation. Joellen Cano MD
[2017-11-30] MEDS: Piperacill/Tazo 2.25gm in Dex 2.25 GM/50 ML BAG IVPB SCH ×3 (00:30→11:25)
--- NOTE | 2017-11-30 00:31 | PN ---
DATE: SUBJECTIVE: The patient is seen. She was eating with assistance, but noticed to have buccolingual movements and also some jerky movements of her hands. According to Dr. Duckworth, the patient has no Parkinson's, but have Parkinson's syndrome. The patient has a history of schizophrenia, has been exposed to neuroleptic in the past which has been discontinued, but the patient has persistent tardive dyskinesia. The patient is only on Ativan and Cogentin. This could make her dementia worse. If the patient has no Parkinson's, then the patient's Cogentin should be discontinued. There are newer medications that are available right now for tardive dyskinesia, one is Ingrezza, which is valbenazine, as well as Austedo, which is deutetrabenazine. The patient may avail these medications as outpatient to treat her tardive dyskinesia. The patient's tardive dyskinesia is affecting her ability to eat, as well as according to the sister, it is affecting her ability to eat and she is losing weight. The patient will be going for rehab. These medications for tardive dyskinesia, Ingrezza and Austedo, could be given as an outpatient to treat her tardive dyskinesia. The patient's tardive dyskinesia also has been persistent for years even though she was taken off neuroleptic. Also if he patient has no Parkinson's disease, there may be a role to take off her Cogentin as the patient has dementia, and the Cogentin can worsen her dementia being anticholinergic. The patient's behavior is manageable at this time. She is cooperative but will need reconditioning as she is very weak. REVIEW OF SYSTEMS: GENERAL: The patient is alert, verbal, forgetful, seen in her room, eating with assistance. SKIN: No diaphoresis. HEENT: The patient has buccolingual dyskinesia, but able to eat. NECK: Supple. RESPIRATORY: No dyspnea. CARDIOPULMONARY: No chest pain. GASTROINTESTINAL: The patient is eating in bed. EXTREMITIES: There are some tremors. Gait is unsteady. MUSCULOSKELETAL: Feels weak. NEUROLOGIC: Alert with periods of confusion. GENITOURINARY: No complaints of urinary problems. PHYSICAL EXAMINATION: VITAL SIGNS: Temperature 98.1, pulse 63, blood pressure 160/76, respirations 20, and oxygen saturation is 96%. MENTAL STATUS EXAMINATION: Elderly female, who looks stated age, oriented x2, seen in her room. Eating with assistance. Affect restricted. Mood is dysphoric. Speech is slow. Thought process confused at times. Thought content, no overt psychosis. No suicidal or homicidal ideations. Attention and memory seems to be limited. Insight and judgement limited. Impulse control is fair at this time. IMPRESSION: History of chronic schizophrenia, residual stage, as well as history of dementia. Tardive dyskinesia. Failure to thrive. PLAN AND RECOMMENDATION: The patient is seen, medications reviewed. Continue present management. We will keep her with the same medicines for now. We discussed with Dr. Cano if the patient could be a candidate for the newer medications for tardive dyskinesia, the patient could be tried whether with Ingrezza which is the brand name for valbenazine or Austedo, the two new medications for tardive dyskinesia. This patient may need medications to treat tardive dyskinesia as tardive dyskinesia is affecting her ability to eat. The patient is for subacute rehab. Continue treatment plan as outlined. Eleuterio Corral MD
[2017-11-30 01:19] VITALS: TEMP 97.4
[2017-11-30] MEDS: Levothyroxine 75 MCG TAB PO SCH (05:40)
[2017-11-30] MEDS: (Novolog) Insulin Aspart, Recombinant 100 u/ml 10 ml vial SC SCH (11:11)
[2017-11-30] MEDS: Enoxaparin 30 mg Syringe SC SCH (11:11)
[2017-11-30] MEDS: Multivitamin With Minerals Tab PO SCH (11:25)
[2017-11-30] MEDS: Sodium Chloride 0.45% 1,000 ML IV SCH (11:45)
--- NOTE | 2017-11-30 15:06 | CP.PCM.PN ---
Subjective - Date & Time of Evaluation Date of Evaluation: 11/30/17 Time of Evaluation: 15:03 - Subjective Subjective: PT CLEARED FOR D/C TO [facility] TODAY PER DR. GARCIA. HE WILL FOLLOW THE PT THERE. TO CONTINUE AMPICILLIN 500 MG PO QID X5 DAYS (STARTING -12/05/17). PT'S SISTER AT BEDSIDE AND IN AGREEMENT WITH PLAN TO D/C TODAY. DR. GALVAN TO ALSO FOLLOW THE PT THERE. SW TO ARRANGE TRANSPORTATION TO THE FACILITY THIS AFTERNOON. NO FURTHER ORDERS. Objective - Vital Signs/Intake and Output Vital Signs (last 24 hours): Temp Pulse Resp BP Pulse Ox 97.4 F L 79 20 153/78 H 100 11/30/17 00:00 11/30/17 00:00 11/30/17 00:00 11/30/17 01:00 11/30/17 00:00 Intake and Output: 11/30/17 11/30/17 06:59 18:59 Intake Total 960 Balance 960 - Medications Medications: Current Medications Amlodipine Besylate (Norvasc) 5 mg PO DAILY [facility] Last Admin: 11/30/17 11:25 Dose: 5 mg Benztropine Mesylate (Cogentin) 2 mg PO HS [facility] Last Admin: 11/29/17 22:10 Dose: 2 mg Enoxaparin Sodium (Lovenox) 30 mg SC DAILY [facility] Last Admin: 11/30/17 11:11 Dose: 30 mg Sodium Chloride (Sodium Chloride 0.45%) 1,000 mls @ 80 mls/hr IV .[id number] [facility] Last Admin: 11/30/17 11:45 Dose: Not Given Piperacillin Sod/Tazobactam Sod (Zosyn 2.25 Gm Iv Premix) 2.25 gm in 50 mls @ 100 mls/hr IVPB Q6 [facility] Last Admin: 11/30/17 11:25 Dose: 100 mls/hr Insulin Aspart (Novolog) 0 unit SC ACBD [facility] PRN Reason: Protocol Last Admin: 11/30/17 11:11 Dose: Not Given Levothyroxine Sodium (Synthroid) 75 mcg PO DAILY@0630 [facility] Last Admin: 11/30/17 05:40 Dose: 75 mcg Lorazepam (Ativan) 0.5 mg PO HS [facility] Last Admin: 11/29/17 22:10 Dose: 0.5 mg Lorazepam (Ativan) 0.5 mg PO DAILY PRN PRN Reason: Anxiety Last Admin: 11/28/17 10:25 Dose: 0.5 mg Multivitamins/Minerals (Therapeutic-M Tab) 1 tab PO 0800 [facility] Last Admin: 11/30/17 11:25 Dose: 1 tab Rosuvastatin Calcium (Crestor) 10 mg PO HS [facility] Last Admin: 11/29/17 22:10 Dose: 10 mg - Labs Labs: 11/27/17 17:07 11/27/17 17:07
[2017-11-30 17:55] VITALS: BP 157/74; PULSE 71; O2SAT 98
--- NOTE | 2017-11-30 20:45 | PN ---
DATE: 11/30/2017. SUBJECTIVE: The patient is seen. The patient according to the sister, has difficulty eating due to tardive dyskinesia and also has been losing weight. The patient also has involuntary tremors. As discussed with the sister, the patient may be a candidate for outpatient treatment of medication for tardive dyskinesia once she is over with her subacute rehab. The two medicines that can be tried, one is Ingrezza and Austedo, but cannot be initiated at this time, but this could be done as an outpatient. The patient has significant tardive dyskinesia affecting her ability to eat. The patient is willing to go for subacute rehab. PHYSICAL EXAMINATION: VITAL SIGNS: Temperature 97.4, pulse 79, blood pressure 153/78, respirations 20 and oxygen sat is 100%. REVIEW OF SYSTEMS: GENERAL: The patient is seen, alert, verbal, seen in her room with her sister, still confused at times. SKIN: Vegetable Grower diaphoresis. HEENT: Has buccolingual dyskinesia affecting ability to swallow. NECK: Supple. RESPIRATORY: No dyspnea. CARDIOPULMONARY: No chest pain. GASTROINTESTINAL: Appetite is variable. EXTREMITIES: Off and on intermittent hand tremors. Gait is unsteady. MUSCULOSKELETAL: Feels weak. NEUROLOGIC: Alert with periods of confusion, but she knows she is in the hospital, oriented to person at this time. MENTAL STATUS EXAMINATION: Elderly female, who looks stated age, oriented x2. Mood is dysphoric. Affect restricted. Speech is spontaneous. Thought process confused at times. Thought content, no overt paranoia, no hallucinations. No suicidal or homicidal ideations. Attention and memory still limited. Insight and judgment limited. Impulse control is fair at this time. IMPRESSION: History of chronic schizophrenia, residual stage as well as history of Parkinsonian syndrome, tardive dyskinesia, dementia with mood changes. PLAN AND RECOMMENDATIONS: The patient is seen, meds reviewed. As discussed with sister, the patient may continue the Ativan 0.5 daily p.r.n. and 0.5 mg at bedtime. According to the sister, when the Cogentin was discontinued, the patient became more confused. For now, we will keep her with the Cogentin 2 mg at bedtime until we initiate medication for tardive dyskinesia. Review of her labs, her blood sugar is 122, her free T4 is 1.26, folate is greater than 20 and her B12 level is 233. She is on multivitamins. The patient has been given B12 supplements for three doses. Continue treatment plan as outlined. Eleuteiro Corral MD
--- NOTE | 2017-12-01 21:09 | DS ---
REASON FOR ADMISSION: This is an 82 years old female with history of multiple medical problems including Parkinson's disease was admitted for failure to thrive with dehydration and urinary tract infection. COURSE OF HOSPITALIZATION: The patient was admitted to medical floor and she was started on IV fluid and IV antibiotics after the patient had urine culture positive for the beta-hemolytic streptococcus. The patient had a Neurology evaluation by Dr. Duckworth. The patient was started on physical therapy and she was cooperative with physical therapy. The patient had brain MRI done as ordered by Neurology and it showed no acute intracranial abnormality with noted chronic micro angiographic changes and moderate age-related global parenchymal volume loss. FINAL DIAGNOSES: Parkinson's disease, type 2 diabetes mellitus, hypertension, cancer of breast, status post right nephrectomy. [facility] MD [place]
== END 2017-11-30 18:21 | DRG 92 ==
LOC: C.ER 14:37 → C.9E 17:49 → C.3T 18:37
PROVIDERS: ADMIT Internal Medicine; ATTEND Internal Medicine
DX: G24.01 Drug induced subacute dyskinesia (principal); F20.89 Other schizophrenia; E11.22 Type 2 diabetes mellitus with diabetic chronic kidney disease; E11.40 Type 2 diabetes mellitus with diabetic neuropathy, unspecified; N39.0 Urinary tract infection, site not specified; D64.9 Anemia, unspecified; E03.9 Hypothyroidism, unspecified; J44.9 Chronic obstructive pulmonary disease, unspecified; E78.5 Hyperlipidemia, unspecified; F39 Unspecified mood [affective] disorder; Z85.3 Personal history of malignant neoplasm of breast; F41.9 Anxiety disorder, unspecified; F32.9 Major depressive disorder, single episode, unspecified; I12.9 Hypertensive chronic kidney disease with stage 1 through stage 4 chronic kidney disease, or unspecified chronic kidney disease; N18.9 Chronic kidney disease, unspecified; T43.505A Adverse effect of unspecified antipsychotics and neuroleptics, initial encounter; F03.90 Unspecified dementia, unspecified severity, without behavioral disturbance, psychotic disturbance, mood disturbance, and anxiety; E53.8 Deficiency of other specified B group vitamins; R62.7 Adult failure to thrive; R26.89 Other abnormalities of gait and mobility; R26.81 Unsteadiness on feet; Z91.040 Latex allergy status; Z79.4 Long term (current) use of insulin